=== PATIENT | female | born 1955 | race Caucasian/White ===

== ENCOUNTER 2016-11-17 06:51 | Day surgery (SDC) | payer BC ==
[~2016-11-17] VITALS: Ht 167.6 cm; Wt 64.0 kg
[2016-11-17] VITALS (7 sets, daily range): BP systolic 132–148; BP diastolic 64–74
--- NOTE | 2016-11-17 07:01 | Anethesia Preoperative Eval ---
Anesthesia Pre-op PMH/ROS General Date of Evaluation: Nov 17, 2016 Time of Evaluation: 06:59 Anesthesiologist: billy ASA Score: ASA 2 Mallampati Score Class I : Soft palate, uvula, fauces, pillars visible Class II: Soft palate, uvula, fauces visible Class III: Soft palate, base of uvula visible Class IV: Only hard plate visible Mallampati Classification: Class II Surgeon: antonietta Diagnosis: gerd, colon screening Surgical Procedure: egd/colonocopy Social History: smoking - nonsmoker Family History: no anesthesia problems Allergies: Coded Allergies: No Known Allergies (Unverified , 11/14/16) Medications: see eMAR Past Medical History Gastrointestinal/Genitourinary: Reports: other - proctitis, colitis Musculoskeletal/Integumentary: Reports: OA Anesthesia Pre-op Phys. Exam Physician Exam Constitutional: NAD Neurologic: CN 2-12 intact Cardiovascular: RRR Respiratory: CTA Gastrointestinal: S/NT/ND Airway Exam Mallampati Score: Class II MO: full Neck: supple TMD: 2fb ROM: full Teeth: intact Anesthesia Pre-op A/P Studies Pre-op Studies: EKG - nsr Risk Assessment & Plan Assessment: asa2 Plan: mac Status Change Before Surgery: No Pre-Antibiotics Drug: JACKIE Lawson Nov 17, 2016 07:01
[2016-11-17] MEDS ORDERED: Propofol 200mg/20ml IV ONE (07:30)
[2016-11-17] MEDS ORDERED: Midazolam 2mg/2ml Inj IVP PRN (07:30)
[2016-11-17] MEDS ORDERED: DiphenhydrAMINE 50mg/ml Inj IVP PRN (07:30)
[2016-11-17] MEDS ORDERED: Atropine Inj 1mg/10ml Syr IV PRN (07:30)
[2016-11-17] MEDS ORDERED: Lidocaine 1% MPF 10mg/ml 5ml ONE (07:30)
[2016-11-17] MEDS ORDERED: Hydromorphone 0.5mg/0.5ml inj IVP PRN (07:30)
[2016-11-17] MEDS ORDERED: ASACOL HD800 MG ORAL (07:36)
[2016-11-17] MEDS ORDERED: OMEGA 3 1,0001 EACH PO (07:36)
--- NOTE | 2016-11-17 07:46 | Pre-Procedure Note/Attestation ---
Pre-Procedure Note/Attestation Complete Prior to Procedure Planned Procedure: not applicable Procedure Narrative: egd/colonoscopy Indications for Procedure Pre-Operative Diagnosis: gerd, screening colon Attestation I attest that I discussed the nature of the procedure; its benefits; risks and complications; and alternatives (and the risks and benefits of such alternatives ), prior to the procedure, with the patient (or the patient's legal sales representative groceries). I attest that, if there was a reasonable possibility of needing a blood transfusion, the patient (or the patient's legal sales representative groceries) was given the [facility] standardized written summary, pursuant to the [place] Blood Safety Act ([place] Health and Safety Code # 1645, as amended). I attest that I re-evaluated the patient just prior to the surgery and that there has been no change in the patient's H&P, except as documented below: LUZ ABDI Nov 17, 2016 07:46
--- NOTE | 2016-11-17 07:48 | Short Stay Surgery H&P ---
History of Present Illness History of Present Illness Chief Complaint gerd, screening colon HPI Misael Bustamante is a 61 year old female who was admitted on for Gerd,Colon Screening Patient History Allergies: Coded Allergies: No Known Allergies (Unverified , 11/14/16) PAST MEDICAL HISTORY: Past Surgeries: (1) GERD (gastroesophageal reflux disease) (2) Proctitis Social History: Medication History Scheduled Mesalamine (Asacol Hd), 800 MG ORAL BID, (Reported) [place]-3 Fatty Acids/Fish Oil ([place] 3 1,000 Mg Softgel), 1 EACH PO DAILY, ( Reported) Review of Systems Cardiovascular: Reports: no symptoms Respiratory: Reports: no symptoms Skeletal: Reports: no symptoms Gastrointestinal: Reports: gastro esophageal reflux disease Genitourinary: Reports: no symptoms Neurologic: Reports: no symptoms Endocrine: Reports: no symptoms Hematologic: Reports: no symptoms Physical Exam Vital Signs Last Vital Signs Date Time Temp Pulse Resp B/P (MAP) Pulse Ox O2 Delivery O2 Flow Rate FiO2 11/17/16 07:32 98.5 71 19 134/71 96 Room Air Skin: normal HENT: normal Heart: normal Lungs: normal Abdomen: normal Extremities: normal Plan Plan of Care esophagogastroduodenocopy colonoscopy Final Diagnosis: Attestation Are the patient's medical conditions optimized for surgery? LUZ ABDI Nov 17, 2016 07:48
--- NOTE | 2016-11-17 08:49 | Immediate Post-Op Evaluation ---
Immediate Post-Op Evalulation Immediate Post-Op Evalulation Procedure: egd/colonoscopy Date of Evaluation: Nov 17, 2016 Time of Evaluation: 08:48 IV Fluids: 350ml 0.9ns Blood Products: none Estimated Blood Loss: negligible Blood Pressure Systolic: 139 Blood Pressure Diastolic: 69 Pulse Rate: 71 Respiratory Rate: 18 O2 Sat by Pulse Oximetry: 99 Temperature (Fahrenheit): 97.0 Pain Score (1-10): 0 Nausea: No Vomiting: No Complications none Patient Status: awake, reacts, patent Hydration Status: adequate Drug: JACKIE Lawson Nov 17, 2016 08:49
--- NOTE | 2016-11-17 08:50 | 48 Hour Post Anesthesia Eval ---
Post Anesthesia Evaluation Procedure: egd/colonoscopy Date of Evaluation: Nov 17, 2016 Time of Evaluation: 08:50 Blood Pressure Systolic: 136 0: 71 Pulse Rate: 71 Respiratory Rate: 18 Temperature (Fahrenheit): 97.0 O2 Sat by Pulse Oximetry: 99 Airway: patent Nausea: No Vomiting: No Pain Intensity: 0 Hydration Status: adequate Cardiopulmonary Status: stable Mental Status/LOC: patient returned to baseline Post-Anesthesia Complications: none Follow-up care needed: N/A JACKIE RAMOS Nov 17, 2016 08:50
--- NOTE | 2016-11-17 10:20 | Endoscopy Procedure Note ---
Endoscopy Procedure Note Indication for Procedure: screening colon, GERD Procedures Performed: EGD, colonoscopy Operative Findings/Diagnosis: 3 colon polyps, diverticulosis, Specimen: yes Pt Tolerated Procedure Well: Yes Estimated Blood Loss: none Anesthesiologist: billy Anesthesia: MAC Implant(s) used?: No 50 yrs or older w/o bx or poly: No 10yrs. F/U not recommended: Yes If not recommended, why?: Above average risk 10 yrs. F/U needed: Yes 18 years or older w/prev. colo: Yes <3yrs. since last colonoscopy: No LUZ ABDI Nov 17, 2016 10:20
--- NOTE | 2016-11-17 19:00 | Procedure Note ---
DATE OF PROCEDURE: 11/17/2016 SURGEON: Bakari England M.D. PROCEDURE: Upper endoscopy with biopsy and colonoscopy with biopsy. ANESTHESIOLOGIST: Yoli Finn M.D. INSTRUMENT: Olympus adult flexible upper endoscope and colonoscope. Indication: Screening colonoscopy evaluation, history of colonic polyp, and gastroesophageal reflux disease. Reason for Procedure: The procedure, risks, benefits, and possible consequences, including hemorrhage, aspiration, perforation and infection, and alternative treatments, were explained to the patient/legal guardian by Dr. Bakari England and the patient/legal guardian understood and accepted these risks. Description Of Procedure: After informed consent was obtained and the patient was adequately sedated, Olympus upper endoscope was advanced from the mouth into the second portion of the duodenum and retroflexion was performed in the stomach. The patient had evidence of diffuse antral gastritis, streaking in nature and one small clean based ulcer roughly about 5 mm. No adherent clot. No visible vessel. The patient has multiple polyps mostly in the body of the stomach highly suspicious for fundic gland polyps, one of them, the biggest one was biopsied. Then subsequently, random biopsy from the body and antrum was obtained to rule out H. pylori infection. Duodenal mucosa was grossly within normal limit. The gastroesophageal junction was found to be at about 38 cm from the incisors. There was no evidence of any obvious esophagitis or any obvious hiatal hernia or any other pathology at the GE junction. When removing the scope, the patient had a very small inlet patch below the upper esophageal sphincter. At this time, the upper endoscope was completely removed. The patient was turned over for colonoscopy. First rectal exam was performed, which was normal. Then, the scope was advanced from the rectum into the cecum. We were able to just look at the TI and may be a little bit of terminal ileum. Given we had this cap on the tip of the scope, made the intubation into the terminal ileum very difficult. The quality of prep was very good. The patient had a total of three polyps, all of them very small, two in the sigmoid and one in the rectosigmoid, all removed with the cold biopsy forceps technique. The patient had moderate sigmoid diverticulosis, may be one or two diverticula in the right side. The patient had a focal colitis with shallow ulceration few centimeters from the anal verge, which was biopsied. Retroflexion of rectum showed evidence of few small nonbleeding internal hemorrhoids. SUMMARY OF FINDINGS: 1. Inlet patch, very small. 2. Z-line at 38 without any obvious esophagitis. 3. Diffuse gastritis status post biopsy of the antrum and body. 4. One shallow ulceration and erosion in the antrum of the stomach. 5. Multiple fundic gland polyps status post biopsy. 6. Three colonic polyps removed, see above for details. 7. Internal hemorrhoids. 8. Diverticulosis. 9. Focal colitis in the rectum. RECOMMENDATIONS: Followup biopsy results and treat accordingly. I want to thank Dr. Tanja Bustamante for this kind referral. Bakari England M.D. DR: AD JOB#: [id number] CC: Tanja Bustamante M.D.; Fax#: [phone]
== END 2016-11-17 09:20 | disposition home or self-care (01) ==
LOC: GAS 06:51 → EEVIPCON 08:00 → GAS 09:20
DX: Z12.11 Encounter for screening for malignant neoplasm of colon (principal); K31.7 Polyp of stomach and duodenum; K63.5 Polyp of colon; K64.8 Other hemorrhoids; K57.90 Diverticulosis of intestine, part unspecified, without perforation or abscess without bleeding; K52.9 Noninfective gastroenteritis and colitis, unspecified; K21.9 Gastro-esophageal reflux disease without esophagitis; M19.90 Unspecified osteoarthritis, unspecified site; K62.89 Other specified diseases of anus and rectum; K25.9 Gastric ulcer, unspecified as acute or chronic, without hemorrhage or perforation; K29.50 Unspecified chronic gastritis without bleeding
CPT/HCPCS: 43239; 45380; 93005; J2704; 94003; 94150

== ENCOUNTER 2019-04-15 06:59 | Day surgery (SDC) | payer MEDICARE, BC ==
[2019-04-15] VITALS (9 sets, daily range): BP systolic 98–137; BP diastolic 59–67
[~2019-04-15] VITALS: Ht 167.6 cm; Wt 67.1 kg
[~2019-04-15 06:59] MED LIST: ASACOL HD800 MG ORAL; OMEGA 3 1,0001 EACH PO
--- NOTE | 2019-04-15 08:57 | Anethesia Preoperative Eval ---
Anesthesia Pre-op PMH/ROS General Date of Evaluation: Apr 15, 2019 Time of Evaluation: 08:56 Anesthesiologist: Stephanie Duke CRNA ASA Score: ASA 2 Mallampati Score Class I : Soft palate, uvula, fauces, pillars visible Class II: Soft palate, uvula, fauces visible Class III: Soft palate, base of uvula visible Class IV: Only hard plate visible Mallampati Classification: Class II Surgeon: Samanta Diagnosis: GERD, colitis Surgical Procedure: EGD, colonoscopy Family History: no anesthesia problems Allergies: Coded Allergies: No Known Allergies (Unverified , 11/14/16) Medications: see eMAR Patient NPO?: Yes NPO Date: Apr 15, 2019 NPO Time: 00:00 Past Medical History Cardiovascular: Denies: HTN, CAD, [place], valve dz, arrhythmia, other Pulmonary: Denies: asthma, COPD, CHAVA, other Gastrointestinal/Genitourinary: Reports: GERD, other - ulcerative colitis, currently on steroids; Denies: CRI, ESRD Endocrine: Denies: DM, hypothyroidism, steroids, other HEENT: Denies: cataract (L), cataract (R), glaucoma, [place] (L), [place] (R), other Hematology/Immune: Denies: anemia, DVT, bleeding disorder, other Musculoskeletal/Integumentary: Reports: OA, other - cervical herniated disk; Denies: RA, DJD, DDD, edema PMH Narrative: as noted above PSxH Narrative: colonoscopy x1 Anesthesia Pre-op Phys. Exam Physician Exam Last Vital Signs Date Time Temp Pulse Resp B/P (MAP) Pulse Ox O2 Delivery O2 Flow Rate FiO2 04/15/19 07:57 Room Air 04/15/19 07:30 97.2 70 14 98/63 95 Constitutional: NAD Cardiovascular: RRR Respiratory: CTA Gastrointestinal: S/NT/ND Airway Exam Mallampati Score: Class I MO: full ROM: full Teeth: intact Dentures: no upper, no lower Anesthesia Pre-op A/P Studies Pre-op Studies: EKG - NSR, cannot r/o anterior infarct Risk Assessment & Plan Assessment: ASA 2, ok to proceed Plan: MAC Status Change Before Surgery: No Pre-Antibiotics Given Within 1 Hr of Incision: Stephanie Noel CRNA Apr 15, 2019 08:57
[2019-04-15] MEDS ORDERED: LR 1000ml ONE (09:00)
[2019-04-15] MEDS ORDERED: Propofol 200mg/20ml IV ONE (09:00)
[2019-04-15] MEDS ORDERED: Lidocaine 1% MPF 10mg/ml 5ml ONE (09:00)
--- NOTE | 2019-04-15 09:11 | Pre-Procedure Note/Attestation ---
Pre-Procedure Note/Attestation Complete Prior to Procedure Planned Procedure: not applicable Procedure Narrative: esophagogastroduodenoscopy and colonoscopy Indications for Procedure Pre-Operative Diagnosis: proctitis, rectal bleed, GERD Attestation I attest that I discussed the nature of the procedure; its benefits; risks and complications; and alternatives (and the risks and benefits of such alternatives ), prior to the procedure, with the patient (or the patient's legal safety representative). I attest that, if there was a reasonable possibility of needing a blood transfusion, the patient (or the patient's legal safety representative) was given the [facility] standardized written summary, pursuant to the [place] Blood Safety Act ([place] Health and Safety Code # 1645, as amended). I attest that I re-evaluated the patient just prior to the surgery and that there has been no change in the patient's H&P, except as documented below: Bakari England MD Apr 15, 2019 09:11
--- NOTE | 2019-04-15 09:12 | Short Stay Surgery H&P ---
History of Present Illness History of Present Illness Chief Complaint rectal bleed, GERD HPI Griselda Bustamante is a 64 year old female who was admitted on for Gerd And Screening Patient History Allergies: Coded Allergies: No Known Allergies (Unverified , 11/14/16) PAST MEDICAL HISTORY: (1) GERD (gastroesophageal reflux disease) (2) Proctitis Medication History Scheduled Mesalamine (Asacol Hd), 800 MG ORAL BID, (Reported) [place]-3 Fatty Acids/Fish Oil ([place] 3 1,000 Mg Softgel), 1 EACH PO DAILY, ( Reported) Review of Systems Cardiovascular: Reports: no symptoms Respiratory: Reports: no symptoms Skeletal: Reports: no symptoms Gastrointestinal: Reports: no symptoms Genitourinary: Reports: no symptoms Neurologic: Reports: no symptoms Endocrine: Reports: no symptoms Physical Exam Vital Signs Last Vital Signs Date Time Temp Pulse Resp B/P (MAP) Pulse Ox O2 Delivery O2 Flow Rate FiO2 04/15/19 07:57 Room Air 04/15/19 07:30 97.2 70 14 98/63 95 Skin: normal HENT: normal Heart: normal Lungs: normal Abdomen: normal Extremities: normal Plan Plan of Care esophagogastroduodenoscopy and colonoscopy Attestation Are the patient's medical conditions optimized for surgery? Attestation Response: yes Bakari England MD Apr 15, 2019 09:12
--- NOTE | 2019-04-15 09:37 | Immediate Post-Op Evaluation ---
Immediate Post-Op Evalulation Immediate Post-Op Evalulation Procedure: EGD, colonoscopy with biopsies Date of Evaluation: Apr 15, 2019 Time of Evaluation: 09:56 IV Fluids: LR 600 ml Blood Pressure Systolic: 142 Blood Pressure Diastolic: 57 Pulse Rate: 62 Respiratory Rate: 22 O2 Sat by Pulse Oximetry: 99 Temperature (Fahrenheit): 97.1 Pain Score (1-10): 0 Nausea: No Vomiting: No Complications none Patient Status: awake, patent Hydration Status: adequate Given Within 1 Hr of Incision: Stephanie Noel CRNA Apr 15, 2019 09:37
--- NOTE | 2019-04-15 09:52 | Endoscopy Procedure Note ---
Endoscopy Procedure Note General Indication for Procedure: rectal bleed Procedures Performed: EGD, colonoscopy Operative Findings/Diagnosis: colitis, diverticulosis Specimen: yes Pt Tolerated Procedure Well: Yes Estimated Blood Loss: none Anesthesia Anesthesiologist: raimundo Anesthesia: MAC Inserted Devices Implant(s) used?: No Quality Quality of Bowel Preparation: Excellent Did scope reach the cecum?: Yes Was there any complications?: No GI Core Measures 50 yrs or older w/o bx or poly: No 10yrs. F/U recommended: Yes If not recommended, why?: Above average risk 18 years or older w/prev. colo: Yes <3yrs. since last colonoscopy: No Bakari England MD Apr 15, 2019 09:52
--- NOTE | 2019-04-15 11:31 | 48 Hour Post Anesthesia Eval ---
Post Anesthesia Evaluation Procedure: EGD, colonoscopy with biopsies Date of Evaluation: Apr 15, 2019 Time of Evaluation: 11:30 Blood Pressure Systolic: 131 0: 62 Pulse Rate: 59 Respiratory Rate: 18 Temperature (Fahrenheit): 97.5 O2 Sat by Pulse Oximetry: 96 Airway: patent Nausea: No Vomiting: No Pain Intensity: 0 Hydration Status: adequate Cardiopulmonary Status: stable Mental Status/LOC: patient returned to baseline Follow-up Care/Observations: per GI Post-Anesthesia Complications: none Follow-up care needed: N/A Stephanie Duke CRNA Apr 15, 2019 11:31
--- NOTE | 2019-04-15 15:45 | Procedure Note ---
DATE OF PROCEDURE: 04/15/2019 SURGEON: Bakari England M.D. PROCEDURE: Upper endoscopy with biopsy and colonoscopy with biopsy. ANESTHESIA: Per nurse community product specialistStephanie. INSTRUMENT: Olympus adult flexible upper endoscope and colonoscope. REASON FOR PROCEDURE: The procedure, risks, benefits, and possible consequences, including hemorrhage, aspiration, perforation and infection, and alternative treatments, were explained to the patient/legal guardian by Dr. Bakari England and the patient/legal guardian understood and accepted these risks. INDICATION: Rectal bleeding, history of colitis, chronic acid reflux disease. DESCRIPTION OF PROCEDURE: After informed consent was obtained and the patient was adequately sedated, Olympus upper endoscope was advanced from mouth into the second portion of the duodenum and retroflexion was performed in the stomach. The patient had evidence of GE junction at 38 cm from the incisors. Mild irregularity at the Z-line. The patient had also evidence of small hiatal hernia. No evidence of any esophagitis. In the stomach, there was evidence of diffuse nodular gastritis. Random biopsies from antrum and body was obtained to rule out H. pylori infection. At this time, the upper endoscope was retrieved and the patient was turned over for colonoscopy. First, rectal exam was performed, which was positive for internal hemorrhoids. Then, the scope was advanced from rectum into the cecum then subsequently to terminal ileum. Quality of prep was excellent. The patient has evidence of colitis starting from the rectum all the way to about 25 cm from the anal verge with ulcerations, highly suspicious for recurrent ulcerative colitis, status post multiple biopsies. The patient had evidence of diverticulosis scattered mostly in the left colon, but some in the right colon. Retroflexion of rectum showed evidence of small rectal polyp, which was removed with a cold biopsy forceps technique. The patient had also evidence of medium-sized internal hemorrhoids. The patient tolerated the procedure well without complication. SUMMARY OF FINDINGS: 1. Small hiatal hernia. 2. Irregular Z-line. 3. Nodular gastritis, status post biopsy. 4. Evidence of colitis from anus up to about 25 cm from the anal verge, status post biopsy. 5. Internal hemorrhoids. 6. Rectal polyp, removed. 7. Diverticulosis. RECOMMENDATIONS: Follow up biopsy results and treat accordingly. I want to thank Dr. Tanja Bustamante for this kind referral. Bakari Pastora Enlgand DR: SHERRY JOB#: [id number] CC: Tanja Bustamante M.D.; Fax#: [phone]
== END 2019-04-15 12:45 | disposition home or self-care (01) ==
LOC: GAS 06:59
DX: K62.5 Hemorrhage of anus and rectum (principal); K21.9 Gastro-esophageal reflux disease without esophagitis; K44.9 Diaphragmatic hernia without obstruction or gangrene; K64.8 Other hemorrhoids; K62.1 Rectal polyp; K57.90 Diverticulosis of intestine, part unspecified, without perforation or abscess without bleeding; M19.90 Unspecified osteoarthritis, unspecified site; K29.50 Unspecified chronic gastritis without bleeding; D12.6 Benign neoplasm of colon, unspecified; K52.9 Noninfective gastroenteritis and colitis, unspecified
CPT/HCPCS: 43239; 45380; 93005; J2704; J7120; 94003; 94150

== ENCOUNTER 2020-03-19 07:42 | Day surgery (SDC) | payer MEDICARE, BC ==
[~2020-03-19] VITALS: Ht 167.6 cm; Wt 65.3 kg
[2020-03-19] VITALS (9 sets, daily range): BP systolic 137–154; BP diastolic 64–85
[~2020-03-19 07:42] MED LIST changes: +CRESTOR10 M2 ORAL; +TAGAMET HB200 MG PO; +[UNRECOGNIZED DRUG - OTHER] PO
[2020-03-19] MEDS ORDERED: LR 1000ml 1,000 ML IVLG SCH ×2 (08:00→09:00)
[2020-03-19] MEDS ORDERED: Midazolam 2mg/2ml Inj ONE (08:37)
--- NOTE | 2020-03-19 08:46 | Anethesia Preoperative Eval ---
Anesthesia Pre-op PMH/ROS General Date of Evaluation: Mar 19, 2020 Time of Evaluation: 08:43 Anesthesiologist: May ASA Score: ASA 2 Mallampati Score Class I : Soft palate, uvula, fauces, pillars visible Class II: Soft palate, uvula, fauces visible Class III: Soft palate, base of uvula visible Class IV: Only hard plate visible Mallampati Classification: Class II Surgeon: Samanta Diagnosis: EGD Colonoscopy Surgical Procedure: Colitis Anesthesia History: none Family History: no anesthesia problems Allergies: Coded Allergies: No Known Allergies (Unverified , 03/16/20) Medications: see eMAR Patient NPO?: Yes Past Medical History Cardiovascular: Denies: HTN, CAD, [place], valve dz, arrhythmia, other Pulmonary: Denies: asthma, COPD, CHAVA, other Gastrointestinal/Genitourinary: Reports: GERD, other - h/o colitis; Denies: CRI, ESRD Neurologic/Psychiatric: Denies: dementia, CVA, depression/anxiety, TIA, other Endocrine: Denies: DM, hypothyroidism, steroids, other HEENT: Denies: cataract (L), cataract (R), glaucoma, [place] (L), [place] (R), other Hematology/Immune: Reports: anemia - mild; Denies: DVT, bleeding disorder, other Musculoskeletal/Integumentary: Denies: OA, RA, DJD, DDD, edema, other PMH Narrative: as above PSxH Narrative: see H&P Anesthesia Pre-op Phys. Exam Physician Exam Last Vital Signs Date Time Temp Pulse Resp B/P (MAP) Pulse Ox O2 Delivery O2 Flow Rate FiO2 03/19/20 08:09 Room Air Constitutional: NAD Neurologic: CN 2-12 intact Cardiovascular: RRR, no M/R/G Respiratory: CTA Gastrointestinal: S/NT/ND Airway Exam Mallampati Score: Class II MO: full Neck: flexible ROM: full Teeth: intact Dentures: no upper, no lower Anesthesia Pre-op A/P Risk Assessment & Plan Assessment: ASA 2 Plan: MAC Status Change Before Surgery: No Chetan Olvera MD Mar 19, 2020 08:46
--- NOTE | 2020-03-19 08:59 | Pre-Procedure Note/Attestation ---
Pre-Procedure Note/Attestation Complete Prior to Procedure Planned Procedure: not applicable Procedure Narrative: esophagogastroduodenoscopy and colonoscopy Indications for Procedure Pre-Operative Diagnosis: GIB Attestation I attest that I discussed the nature of the procedure; its benefits; risks and complications; and alternatives (and the risks and benefits of such alternatives), prior to the procedure, with the patient (or the patient's legal outside sales representative insurance). I attest that, if there was a reasonable possibility of needing a blood transfusion, the patient (or the patient's legal outside sales representative insurance) was given the [facility] standardized written summary, pursuant to the [place] Blood Safety Act ([place] Health and Safety Code # 1645, as amended). I attest that I re-evaluated the patient just prior to the surgery and that there has been no change in the patient's H&P, except as documented below: Bakari England MD Mar 19, 2020 08:59
[2020-03-19] MEDS ORDERED: LR 1000ml ONE (09:00)
[2020-03-19] MEDS ORDERED: fentaNYL 100 mcg/2 mL IV PRN (09:00)
[2020-03-19] MEDS ORDERED: fentaNYL 100 mcg/2 mL IV ONE (09:00)
--- NOTE | 2020-03-19 09:00 | Short Stay Surgery H&P ---
History of Present Illness History of Present Illness Chief Complaint rectal bleed HPI Griselda Bustamante is a 65 year old female who was admitted on for Hx Of Polyps, Colon Screening Patient History Allergies: Coded Allergies: No Known Allergies (Unverified , 03/16/20) PAST MEDICAL HISTORY: (1) GERD (gastroesophageal reflux disease) (2) Proctitis Medication History Scheduled Mesalamine (Asacol Hd), 800 MG ORAL BID, (Reported) Rosuvastatin Calcium* (Crestor*), 10 MG ORAL DAILY, (Reported) [Azifex], Unknown Dose PO DAILY, (Reported) Discontinued Medications Cimetidine (Tagamet Hb), 200 MG PO DAILY, (Reported) Discontinued Reason: Pt stopped taking med [place]-3 Fatty Acids/Fish Oil ([place] 3 1,000 Mg Softgel), 1 EACH PO DAILY, (Reported) Discontinued Reason: Pt stopped taking med Review of Systems Cardiovascular: Reports: no symptoms Respiratory: Reports: no symptoms Skeletal: Reports: no symptoms Gastrointestinal: Reports: no symptoms Genitourinary: Reports: no symptoms Neurologic: Reports: no symptoms Endocrine: Reports: no symptoms Hematologic: Reports: no symptoms Physical Exam Vital Signs Last Vital Signs Date Time Temp Pulse Resp B/P (MAP) Pulse Ox O2 Delivery O2 Flow Rate FiO2 03/19/20 08:55 97.4 73 18 140/85 97 Room Air Skin: normal HENT: normal Heart: normal Lungs: normal Abdomen: normal Extremities: normal Plan Plan of Care esophagogastroduodenoscopy and colonoscopy Attestation Are the patient's medical conditions optimized for surgery? Attestation Response: yes Bakari England MD Mar 19, 2020 09:00
--- NOTE | 2020-03-19 09:49 | Endoscopy Procedure Note ---
Endoscopy Procedure Note General Indication for Procedure: rectal bleed Procedures Performed: EGD, colonoscopy Operative Findings/Diagnosis: gastritis, diverticulosis, hemorrhoids Specimen: yes Pt Tolerated Procedure Well: Yes Estimated Blood Loss: none Anesthesia Anesthesiologist: bassem Anesthesia: MAC Inserted Devices Implant(s) used?: No Quality Quality of Bowel Preparation: Good Did scope reach the cecum?: Yes Was there any complications?: No GI Core Measures 50 yrs or older w/o bx or poly: No 10yrs. F/U recommended: Yes If not recommended, why?: Above average risk 18 years or older w/prev. colo: Yes <3yrs. since last colonoscopy: No Bakari England MD Mar 19, 2020 09:49
--- NOTE | 2020-03-19 09:50 | Immediate Post-Op Evaluation ---
Immediate Post-Op Evalulation Immediate Post-Op Evalulation Procedure: EGD colonoscopy, polypectomy Date of Evaluation: Mar 19, 2020 Time of Evaluation: 09:49 IV Fluids: 600 Blood Products: none Estimated Blood Loss: min Urinary Output: none Blood Pressure Systolic: 137 Blood Pressure Diastolic: 67 Pulse Rate: 68 Respiratory Rate: 18 O2 Sat by Pulse Oximetry: 99 Temperature (Fahrenheit): 97.7 Pain Score (1-10): 1 Nausea: No Vomiting: No Complications none Patient Status: reacts, patent, none Hydration Status: adequate Chetan Olvera MD Mar 19, 2020 09:50
--- NOTE | 2020-03-19 10:29 | Procedure Note ---
DATE OF PROCEDURE: 03/19/2020 SURGEON: Bakari England MD. PROCEDURE: Upper endoscopy with biopsy, colonoscopy with biopsy, snare polypectomy, and hemostasis. ANESTHESIA: Per Dr. Olvera. INSTRUMENT: Olympus adult flexible endoscope and colonoscope. INDICATION: Colitis, rectal bleeding. REASON FOR PROCEDURE: The procedure, risks, benefits, and possible consequences, including hemorrhage, aspiration, perforation and infection, and alternative treatments, were explained to the patient/legal guardian by Dr. Bakari England and the patient/legal guardian understood and accepted these risks. PROCEDURE IN DETAIL: After informed consent was obtained and the patient was adequately sedated, Olympus upper endoscope was advanced from mouth into the second portion of duodenum and retroflexion was performed in the stomach. The patient has evidence of diffuse mild gastritis. Random biopsies from antrum and body was obtained to rule out H. pylori infection. GE junction was found to be about 39 cm from incisors. No evidence of any esophagitis or esophageal ulceration. At this time, the upper endoscope was retrieved and the patient was turned over for colonoscopy. First, rectal exam was a performed which was positive for small internal hemorrhoids. Then, the scope was advanced from the rectum into the cecum and then subsequently into terminal ileum. Quality of prep was excellent. The patient had one inflammatory looking polyp in the mid transverse colon measured roughly about 6 mm removed with hot snare polypectomy technique. The patient evidence of diverticulosis both in the right and left colon, scattered. The patient had evidence of active inflammation and colitis at about 20 centimeter from anal verge, actually localized. The rectum looked clean and without any colitis. There was one inflammatory looking polyp in that area which was large, measured roughly about 9 mm that were removed with hot snare polypectomy technique. There was bleeding afterwards which required hemostasis using two clips and 2 mL of 1:10,000 dilution epinephrine injection. Retroflexion of rectum was performed which showed evidence of medium/small sized internal hemorrhoids. SUMMARY OF FINDINGS: 1. Gastritis, status post biopsy. 2. Diverticulosis. 3. Two colonic polyps, removed see above for details. 4. Colitis focal at about 20 cm from anal verge. 5. Internal hemorrhoids. RECOMMENDATIONS: Follow pathology and treat accordingly. I want to thank, Dr. Tanja Bustamante, for this kind referral. Bakari Pastora England DR: [place] JOB#: [id number] CC: Tanja Bustamante M.D.; Fax#: [phone]
--- NOTE | 2020-03-19 10:54 | 48 Hour Post Anesthesia Eval ---
Post Anesthesia Evaluation Procedure: EGD colonoscopy, polypectomy Date of Evaluation: Mar 19, 2020 Time of Evaluation: 10:53 Blood Pressure Systolic: 139 0: 64 Pulse Rate: 72 Respiratory Rate: 18 Temperature (Fahrenheit): 97.8 O2 Sat by Pulse Oximetry: 98 Airway: patent Nausea: No Vomiting: No Pain Intensity: 1 Hydration Status: adequate Cardiopulmonary Status: stable Mental Status/LOC: patient returned to baseline Follow-up Care/Observations: n/a Post-Anesthesia Complications: none Follow-up care needed: ready to discharge Chetan Olvera MD Mar 19, 2020 10:54
== END 2020-03-19 10:40 | disposition home or self-care (01) ==
LOC: GAS 07:42
DX: K52.9 Noninfective gastroenteritis and colitis, unspecified (principal); K62.5 Hemorrhage of anus and rectum; K64.8 Other hemorrhoids; K63.5 Polyp of colon; K57.90 Diverticulosis of intestine, part unspecified, without perforation or abscess without bleeding; K21.9 Gastro-esophageal reflux disease without esophagitis; Z79.899 Other long term (current) drug therapy; D64.9 Anemia, unspecified; K29.50 Unspecified chronic gastritis without bleeding
CPT/HCPCS: 43239; 45382; 45385; 93005; 94003; J0171; J2250; J2704; J3010; J7120; U0002; U0004; 94150